=== PATIENT | male | born 1960 | race Caucasian/White ===

== ENCOUNTER 2016-09-20 11:23 | Emergency (ER) | payer BC ==
[2016-09-20 11:36] VITALS: BP 139/84
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
== END 2016-09-20 12:20 | disposition home or self-care (01) ==
LOC: UCCORT 11:23
DX: N45.1 Epididymitis (principal); F17.210 Nicotine dependence, cigarettes, uncomplicated
CPT/HCPCS: 87491; 87591; 99212; G0463